=== PATIENT | male | born 1980 | race African-American/Black ===

== ENCOUNTER 2021-03-06 04:57 | Observation (INO) | payer OTHER ==
[~2021-03-06] VITALS: Ht 175.3 cm; Wt 113.0 kg
--- NOTE | 2021-03-06 07:47 | NUR ---
WALL TO ROOM AT THIS TIME.
--- NOTE | 2021-03-06 08:00 | NUR ---
pt presents to ed with ems, found down outside hotel room with apparent etoh intoxication. pt had vomited station captain, shirt covered in emesis, removed on arrival. pt admits to daily etoh. pt a&ox4, resps even and unlabored, neuro intact. no further emesis since arrival. bp and spo2 monitors in place . call light in reach.
[2021-03-06 08:20] VITALS: BP 124/72
--- NOTE | 2021-03-06 09:01 | NUR ---
pt requested discharge, refused to wait for dc paperwork or md reassessment. pt refused po challenge. pt is a&ox4, neuro intact, resps even and unlabored, ambulatory with steady gait. pt states friend is at ED to pick him up. pt ambulatory to dc desk with steady gait, all questions answered. cell phone and wallet with pt at time of dc. pt threw away own shirt which was soiled from prior to arrival, refused new shirt when offered.
== END 2021-03-06 09:14 | disposition home or self-care (01) ==
LOC: ED 08:20 → EDIP 08:25 → ED 09:01
PROVIDERS: ADMIT Emergency Medicine; ATTEND Emergency Medicine
DX: F10.120 Alcohol abuse with intoxication, uncomplicated (principal)
CPT/HCPCS: 82962; 99284; G0378